=== PATIENT | female | born 1980 | race Hispanic/Latino ===

== ENCOUNTER 2019-02-25 15:21 | Emergency (ER) | payer MEDICAID ==
[2019-02-25] MEDS ORDERED: ORPHENADRINE CITRATE 30 MG/ML ML ONE (16:06)
[2019-02-25] MEDS ORDERED: KETOROLAC TROMETHAMINE 30MG/ML ONE (16:06)
[2019-02-25 16:24] LABS: APPEARANCE,URINE Clear (CLEAR); BILIRUBIN,URINE Negative (NEGATIVE); COLOR,URINE Yellow (YELLOW); GLUCOSE, URINE (UA) Negative (NEGATIVE); KETONES,URINE Trace mg/dL (NEGATIVE); LEUKOCYTE ESTERASE ,URINE Trace (NEGATIVE); NITRATE,URINE Negative (NEGATIVE); OCCULT BLOOD,URINE Negative (NEGATIVE); PH,URINE 6.5 (5.0-8.0); PROTEIN,URINE Negative (NEGATIVE)
[2019-02-25 16:26] LABS: HCG,QUAL RESULT NEGATIVE (NEGATIVE)
[2019-02-25 16:52] LABS: BACTERIA,URINE Rare /HPF (None Seen); MUCUS,URINE Many LPF (None Seen); RBC,URINE 0-1 /HPF (0-1); WBC,URINE 0-1 /HPF (0-1)
[2019-02-25] MEDS ORDERED: TRAMADOL HCL 50 MG TABLET ONE (17:21)
== END 2019-02-25 17:58 | disposition home or self-care (01) ==
LOC: EDH 15:21
DX: M54.2 Cervicalgia (principal); M62.838 Other muscle spasm; F32.9 Major depressive disorder, single episode, unspecified; F41.9 Anxiety disorder, unspecified; Z98.890 Other specified postprocedural states; Z72.0 Tobacco use
CPT/HCPCS: 81001; 81025; 96372 ×2; 99284; J1885; J2360